=== PATIENT | female | born 1975 | race Caucasian/White ===

== ENCOUNTER 2018-02-28 19:46 | Emergency (ER) | payer BC ==
[2018-02-28] MEDS ORDERED: Prochlorperazine 10 MG/2 ML VIAL ONE (20:55)
[2018-02-28] MEDS ORDERED: Ketorolac Tromethamine 30 MG/ML VIAL ONE (20:55)
[2018-02-28] MEDS ORDERED: diphenhydrAMINE 50 MG/ML VIAL ONE (20:55)
== END 2018-02-28 22:30 | disposition home or self-care (01) ==
LOC: SCSER 19:46
DX: G43.909 Migraine, unspecified, not intractable, without status migrainosus (principal); E03.9 Hypothyroidism, unspecified; F32.9 Major depressive disorder, single episode, unspecified
CPT/HCPCS: 96365; 96375; J0780; J1200; J1885

== ENCOUNTER 2018-03-28 15:37 | Outpatient (CLI) | payer BC | END 2018-03-28 15:38 | disposition home or self-care (01) | LOC: BICMAMMO 15:37 | PROVIDERS: ATTEND Student in an Organized Health Care Education/Training Program | DX: Z12.31 Encounter for screening mammogram for malignant neoplasm of breast (principal) | CPT/HCPCS: 77063; 77067 ==

== ENCOUNTER 2020-12-01 15:44 | Outpatient (CLI) | payer BC | END 2020-12-01 15:45 | disposition home or self-care (01) | LOC: CTENTCT 15:44 | PROVIDERS: ATTEND Specialist | DX: J32.8 Other chronic sinusitis (principal) | CPT/HCPCS: 70486 ==

== ENCOUNTER 2025-04-22 09:34 | Outpatient (CLI) | payer OTHER | END 2025-04-22 09:35 | disposition home or self-care (01) | LOC: SCSRAD 09:34 | PROVIDERS: ATTEND Orthopaedic Surgery | DX: M54.50 Low back pain, unspecified (principal); M41.9 Scoliosis, unspecified; Z98.890 Other specified postprocedural states | CPT/HCPCS: 72100 ==